=== PATIENT | female | born 1995 | race African-American/Black ===

== ENCOUNTER 2021-08-04 17:17 | Emergency (ER) | payer MEDICAID ==
[~2021-08-04] VITALS: Ht 162.6 cm; Wt 45.0 kg
[2021-08-04 20:42] LABS: BASOPHILS % 0.6 % (0.0-2.0); EOSINOPHILS % 0.3 % (0.0-5.0); HEMATOCRIT. 36.1 % (36.0-48.0); HEMOGLOBIN. 11.8 g/dL (12.0-16.0); LYMPHOCYTES % 31.9 % (20.0-50.0); MEAN CORPUSCULAR HEMOGLOBIN 27.2 pg (28.0-32.0); MEAN CORPUSCULAR VOLUME 83.4 fL (81.0-99.0); MEAN PLATELET VOLUME 8.6 fl (7.4-10.4); MONOCYTES % 3.3 % (2.0-8.0); NEUTROPHILS % 63.9 % (40.0-76.0); PLATELET 150 x1000/uL (130-400); RED BLOOD CELL COUNT 4.33 mill/uL (4.2-5.4); RED CELL DISTRIBUTION WIDTH 14.2 % (11.6-14.6)
[2021-08-04 20:46] LABS: CHLORIDE 109 mEq/L (98-107)
[2021-08-04 20:56] LABS: HCG SCREEN NEGATIVE
[2021-08-04 20:57] LABS: B-HCG QUANTITATIVE < 1 mIU/mL (<3)
[2021-08-04 23:30] VITALS: BP 118/80
[2021-08-05 00:02] LABS: CLARITY URINE CLOUDY (CLEAR); COLOR URINE DARK YELLOW (YELLOW); PH URINE 5.5 (4.5-8.0); SPECIFIC GRAVITY URINE 1.026 (1.005-1.030)
[2021-08-05 00:03] LABS: KETONES URINE 2+ (NEGATIVE); LEUKOCYTE ESTERASE URINE NEGATIVE (NEGATIVE); NITRITE URINE POSITIVE (NEGATIVE); OCCULT BLOOD URINE 3+ (NEGATIVE); PROTEIN URINE TRACE (NEGATIVE)
== END 2021-08-04 23:40 | disposition home or self-care (01) ==
LOC: ER 17:17
DX: I10 Essential (primary) hypertension (principal); R10.31 Right lower quadrant pain; D72.819 Decreased white blood cell count, unspecified
CPT/HCPCS: 36415; 76830; 76856; 80048; 81003; 84702; 84703; 85025; 86900; 99284